=== PATIENT | male | born 1985 | race African-American/Black ===

== ENCOUNTER 2018-09-26 18:24 | Emergency (ER) | payer OTHER ==
[2018-09-26] MEDS ORDERED: LIDOCAINE 2% JELLY 5 ML TUBE TOP ONE (21:47)
[2018-09-26] MEDS ORDERED: LIDOCAINE 2% VISCOUS SOLN 20 ML UDCUP PO ONE (21:54)
--- NOTE | 2018-09-26 21:58 | ER Document Report ---
HPI - HPI Patient complains to provider of: mouth pain Time Seen by Provider: 09/26/18 21:06 Onset: This morning Onset/Duration: Sudden Pain Level: 5 Associated Symptoms: None Exacerbated by: Other - air touching it Relieved by: Denies Similar symptoms previously: No - CONSTITUTIONAL Constitutional: DENIES: Fever, Chills - EENT EENT: DENIES: Sore Throat, Ear Pain - NEURO Neurology: REPORTS: Headache. DENIES: Vision blurred - CARDIOVASCULAR Cardiovascular: DENIES: Chest pain Past Medical History - Social History Smoking Status: Never Smoker Frequency of alcohol use: Occasional Drug Abuse: None Family History: Reviewed & Not Pertinent Patient has suicidal ideation: No Patient has homicidal ideation: No Renal/ Medical History: Denies: Hx Peritoneal Dialysis Past Surgical History: Reports: Hx Orthopedic Surgery - Immunizations Hx Diphtheria, Pertussis, Tetanus Vaccination: Yes Vertical Provider Document - CONSTITUTIONAL Agree With Documented VS: Yes Exam Limitations: No Limitations General Appearance: WD/WN, No Apparent Distress Notes: Patient intoxicated - INFECTION CONTROL TRAVEL OUTSIDE OF THE [place] IN LAST 30 DAYS: No - HEENT HEENT: Atraumatic, Normocephalic. negative: Pharyngeal Erythema Mouth Diagram: 1 - gingival inflammation, no flutuance noted, poor dentition, acute ttp over teeth 8 and 9 - NECK Neck: Lymphadenopathy-Left, Lymphadenopathy-Right - RESPIRATORY Respiratory: Breath Sounds Normal, No Respiratory Distress - CARDIOVASCULAR Cardiovascular: Regular Rate, Regular Rhythm - NEURO Level of Consciousness: Awake, Alert Course - Vital Signs Vital signs: Temp Pulse Resp BP Pulse Ox 98.4 F 73 16 153/101 H 98 09/26/18 18:50 09/26/18 18:50 09/26/18 18:50 09/26/18 18:50 09/26/18 18:50 Discharge - Discharge Clinical Impression: Mouth pain Condition: Stable Disposition: HOME, SELF-CARE Additional Instructions: You were seen in the emergency department this evening for gum pain. There is no evidence that you have an abscess but it appears that your gums are inflamed. I gave you some numbing medicine for your mouth. Please use it sparingly and follow the directions on the label. I also gave you antibiotics that you should take for 7 days. He will start to feel improvement after 1-2 days. It is important to take the antibiotics all the way through until they are gone. Please go see the [facility]. Their address is as follows: [address], [address] If you develop a fever, your face swells up and you have difficulty breathing please immediately return to the emergency department. Prescriptions: Lidocaine HCl [Xylocaine 2% Viscous Soln 20 ml Udcup] 20 ml MM ASDIR PRN #1 udc PRN Reason: Penicillin V Potassium [Penicillin Vk 500 mg Tablet] 500 mg PO BID #14 tablet
[2018-09-26 22:13] VITALS: BP 151/89
== END 2018-09-26 22:13 | disposition home or self-care (01) ==
LOC: ER 18:24
DX: K08.89 Other specified disorders of teeth and supporting structures (principal)
CPT/HCPCS: 99282; J3490

== ENCOUNTER 2019-02-19 14:36 | Emergency (ER) | payer SELFPAY ==
[2019-02-19] MEDS ORDERED: ASPIRIN 325 MG TABLET PO ONE (14:53)
[2019-02-19] MEDS ORDERED: ASPIRIN 81 MG TABLET, CHEWABLE PO ONE (14:53)
--- NOTE | 2019-02-19 14:55 | ER Document Report ---
ED Medical Screen (RME) - General Chief Complaint: Chest Pain Stated Complaint: CHEST PAIN Time Seen by Provider: 02/19/19 14:47 Mode of Arrival: Ambulatory Information source: Patient Notes: 33-year-old male presented to ED for complaint of substernal chest pain. He states it does not radiate anywhere. He states it is just below his sternum when he breathes in real deep bad pain when he breathes out he does not have pain. He states he does smoke about 5 cigarettes a day drinks 1 to 240 ounce beers a day uses cocaine but has not had any in a while but does smoke pot. He has a history of ADHD and bipolar. States he does not have any cardiac history. Patient is alert and oriented respirations regular and unlabored speaking in full sentences walks with a even steady gait. I have greeted and performed a rapid initial assessment of this patient. A comprehensive ED assessment and evaluation of the patient, analysis of test results and completion of medical decision making process will be conducted by an additional ED providers. TRAVEL OUTSIDE OF THE [place] IN LAST 30 DAYS: No - Related Data Allergies/Adverse Reactions: No Known Allergies Allergy (Verified 09/06/13 20:22) Past Medical History - Social History Drug Abuse: Cocaine, Marijuana Renal/ Medical History: Denies: Hx Peritoneal Dialysis Psychiatric Medical History: Reports: Hx Attention Deficit Hyperactivity Disorder, Hx Bipolar Disorder Past Surgical History: Reports: Hx Orthopedic Surgery - Immunizations Hx Diphtheria, Pertussis, Tetanus Vaccination: Yes Physical Exam - Vital signs Vitals: Temp Pulse Resp BP Pulse Ox 98 F 76 18 143/83 H 99 02/19/19 14:44 02/19/19 14:44 02/19/19 14:44 02/19/19 14:44 02/19/19 14:44 Course - Vital Signs Vital signs: Temp Pulse Resp BP Pulse Ox 98 F 76 18 143/83 H 99 02/19/19 14:44 02/19/19 14:44 02/19/19 14:44 02/19/19 14:44 02/19/19 14:44
[2019-02-19 15:34] LABS: ABSOLUTE EOSINOPHILS # (AUTO) 0.1 10^3/uL (0.0-0.6); ABSOLUTE LYMPHOCYTES (AUTO) 2.5 10^3/uL (0.5-4.7); ABSOLUTE MONOCYTES (AUTO) 0.4 10^3/uL (0.1-1.4); BASOPHILS % (AUTO) 0.4 % (0-2); EOSINOPHILS % (AUTO) 1.8 % (0-6); HEMATOCRIT 45.2 % (37.9-51.0); LYMPHOCYTES % (AUTO) 41.9 % (13-45); MEAN CORPUSCULAR HEMOGLOBIN 27.7 pg (27.0-33.4); MEAN CORPUSCULAR HGB CONC 33.3 g/dL (32.0-36.0); MEAN CORPUSCULAR VOLUME 83 fl (80-97); MONOCYTES % (AUTO) 6.9 % (3-13); PLATELET COUNT 277 10^3/uL (150-450); RED BLOOD COUNT 5.43 10^6/uL (4.35-5.55); RED CELL DISTRIBUTION WIDTH 15.3 % (11.5-14.0); TOTAL CELLS COUNTED % (AUTO) 100 %
--- NOTE | 2019-02-19 15:40 | RADIOLOGY REPORT (SQ) ---
EXAM DESCRIPTION: CHEST 2 VIEWS COMPLETED DATE/TIME: 02/19/2019 3:34 pm REASON FOR STUDY: substernal chest pain COMPARISON: None. EXAM PARAMETERS: NUMBER OF VIEWS: two views TECHNIQUE: Digital Frontal and Lateral radiographic views of the chest acquired. RADIATION DOSE: NA LIMITATIONS: none FINDINGS: LUNGS AND PLEURA: No opacities, masses or pneumothorax. No pleural effusion. MEDIASTINUM AND HILAR STRUCTURES: No masses or contour abnormalities. HEART AND VASCULAR STRUCTURES: Heart normal size. No evidence for failure. BONES: No acute findings. HARDWARE: None in the chest. OTHER: No other significant finding. IMPRESSION: NO ACUTE RADIOGRAPHIC FINDING IN THE CHEST. TECHNICAL DOCUMENTATION: JOB ID: [id number]- All Rights Reserved Reading location - IP/workstation name: [email or web address]
[2019-02-19 15:51] LABS: ALANINE AMINOTRANSFERASE 54 U/L (21-72); ALBUMIN 4.4 g/dL (3.5-5.0); ALKALINE PHOSPHATASE 71 U/L (38-126); ANION GAP 12 (5-19); APPEARANCE,URINE CLEAR; ASPARTATE AMINO TRANSFERASE 31 U/L (17-59); BILIRUBIN,DIRECT 0.3 mg/dL (0.0-0.4); BILIRUBIN,TOTAL 0.7 mg/dL (0.2-1.3); BILIRUBIN,URINE NEGATIVE (NEGATIVE); BLOOD UREA NITROGEN 22 mg/dL (7-20); CALCIUM 9.9 mg/dL (8.4-10.2); CARBON DIOXIDE 29 mmol/L (22-30); CHLORIDE 102 mmol/L (98-107); COLOR,URINE YELLOW; GLUCOSE 103 mg/dL (75-110); GLUCOSE, URINE NEGATIVE (NEGATIVE); KETONES,URINE NEGATIVE (NEGATIVE); LEUKOCYTE ESTERASE,URINE NEGATIVE (NEGATIVE); LIPASE 39.5 U/L (23-300); NITRITE,URINE NEGATIVE (NEGATIVE); POTASSIUM 4.6 mmol/L (3.6-5.0); PROTEIN,URINE NEGATIVE (NEGATIVE); SODIUM 142.5 mmol/L (137-145); TOTAL PROTEIN 7.7 g/dL (6.3-8.2); URINE SPECIFIC GRAVITY 1.021; UROBILINOGEN,URINE NEGATIVE mg/dL (<2.0)
[2019-02-19 16:04] LABS: URINE AMPHETAMINES SCREEN NEGATIVE; URINE BARBITURATES SCREEN NEGATIVE; URINE BENZODIAZEPINES SCREEN NEGATIVE; URINE COCAINE SCREEN NEGATIVE; URINE MARIJUANA (THC) SCREEN UNCONFIRMED POSITIVE; URINE METHADONE SCREEN NEGATIVE; URINE PHENCYCLIDINE SCREEN NEGATIVE
[2019-02-19 16:05] LABS: CREATINE KINASE MB < 0.22 ng/mL (<4.55); TROPONIN I < 0.012 ng/mL
--- NOTE | 2019-02-19 16:10 | EKG REPORT ---
SEVERITY:- NORMAL ECG - SINUS RHYTHM : Confirmed by: Cj Guy MD 19-Feb-2019 16:09:36
[2019-02-19] MEDS ORDERED: KETOROLAC TROMETHAMINE INJ/PF 30 MG/1 ML SDV IV ONE (18:36)
--- NOTE | 2019-02-19 19:17 | ER Document Report ---
ED General - General Chief Complaint: Chest Pain Stated Complaint: CHEST PAIN Time Seen by Provider: 02/19/19 14:47 Mode of Arrival: Ambulatory TRAVEL OUTSIDE OF THE [place] IN LAST 30 DAYS: No - HPI Notes: Patient is a 33-year-old male who presents to the emergency department for e valuation of chest pain. He points to an area just to the left of his sternum. He states it is at one fingertip, then worsens with deep breaths up his chest. Nothing seems to make it better. He denies any associated shortness of breath, nausea, diaphoresis, near syncope. He states he awoke with this pain this morning at approximately 5:30 in the morning. - Related Data Allergies/Adverse Reactions: No Known Allergies Allergy (Verified 09/06/13 20:22) Past Medical History - General Information source: Patient - Social History Smoking Status: Current Every Day Smoker Drug Abuse: Cocaine, Marijuana Family History: CVA, DM Patient has suicidal ideation: No Patient has homicidal ideation: No Renal/ Medical History: Denies: Hx Peritoneal Dialysis Psychiatric Medical History: Reports: Hx Attention Deficit Hyperactivity Disorder, Hx Bipolar Disorder Past Surgical History: Reports: Hx Orthopedic Surgery - Immunizations Hx Diphtheria, Pertussis, Tetanus Vaccination: Yes Review of Systems - Review of Systems Constitutional: No symptoms reported EENT: No symptoms reported Cardiovascular: See HPI Respiratory: No symptoms reported Gastrointestinal: No symptoms reported Genitourinary: No symptoms reported Musculoskeletal: No symptoms reported Skin: No symptoms reported Neurological/Psychological: No symptoms reported Physical Exam - Vital signs Vitals: Temp Pulse Resp BP Pulse Ox 98 F 76 18 143/83 H 99 02/19/19 14:44 02/19/19 14:44 02/19/19 14:44 02/19/19 14:44 02/19/19 14:44 - Notes Notes: Vital signs reviewed, please refer to chart. Patient is normocephalic, atraumatic. Pupils equal round, reactive to light. Neck is supple without meningismus. Heart is regular rate and rhythm. Lungs are clear to auscultation bilaterally. Chest wall is tender to palpation in the area of this patient's pain. Abdomen is soft, nontender, normoactive bowel sounds throughout. Extremities without cyanosis, clubbing, edema. No posterior calf tenderness. Peripheral pulses are equal. Skin is warm and dry. Patient is awake, alert, neurological exam is nonfocal. Course - Re-evaluation Re-evalutation: 02/19/19 19:21 Patient presents to the emergency department for evaluation of chest pain. He is overweight. He does have elevated blood pressure here. He does not have a family doctor. He was told he needs to establish care with a family doctor. H is pain is certainly not typical of angina. It is reproducible. It is worsened with movements. I expanded the patient that he does however, have significant risk factors that should be addressed. He voiced understanding to this. He is to try and quit smoking. He is to keep an eye on his blood pressure, establish care with a primary care physician to make sure he is adjusting his risk factors appropriately. He understands that, despite negative work-up here, I cannot tell him he does not have the presence of coronary artery disease. He is to follow-up with primary care, return to the emergency department with worsening or new concerning symptoms of any sort. - Vital Signs Vital signs: Temp Pulse Resp BP Pulse Ox 98.5 F 73 18 131/79 H 98 02/19/19 19:22 02/19/19 19:22 02/19/19 19:22 02/19/19 19:22 02/19/19 19:22 - Laboratory Result Diagrams: 02/19/19 14:58 02/19/19 14:58 Laboratory results interpreted by me: 02/19/19 02/19/19 02/19/19 14:58 14:58 14:58 RDW 15.3 H BUN 22 H Creatinine 1.33 H Urine Blood SMALL H - Diagnostic Test Radiology reviewed: Reports reviewed - No acute cardiopulmonary disease - EKG Interpretation by Me Additional EKG results interpreted by me: 02/19/19 19:24 Sinus mechanism with a rate of 67 bpm. Normal axis and intervals, no acute ST changes concerning for ischemia or infarction. Discharge - Discharge Clinical Impression: Chest wall pain Condition: Stable Disposition: HOME, SELF-CARE Instructions: Chest Wall Pain ([facility]), Chest Pain of Unclear Cause ([facility]) Additional Instructions: Try to quit smoking. Follow-up with primary care, have an evaluation of your blood pressure, cholesterol, and other reversible risk factors. Return to the emergency department with worsening or new concerning symptoms of any sort.
[2019-02-19 19:22] VITALS: BP 131/79
== END 2019-02-19 19:30 | disposition home or self-care (01) ==
LOC: ER 14:36
DX: R07.89 Other chest pain (principal); F17.200 Nicotine dependence, unspecified, uncomplicated
CPT/HCPCS: 93005; 99284; 96374; 36415; 82553; 83690; 85025; 80053; 81001; 84484; 80307; 71046; 93010; J1885

== ENCOUNTER 2019-04-14 10:23 | Emergency (ER) | payer SELFPAY ==
--- NOTE | 2019-04-14 11:16 | ER Document Report ---
HPI - HPI Time Seen by Provider: 04/14/19 11:15 Pain Level: 3 Notes: Patient is a 33-year-old male with a history of chronic knee pain who presents complaining of left ankle pain without any acute injury over the past couple days. Patient states that he uses a weed Shakira and is constantly walking and going up hills. Patient states that his knee will hurt on occasion, but is here because of his ankle. Patient states that he has soreness in his ankle and at times it feels like it wants to give way on him. Patient states that he is here because he needs a work note for today. Denies drug allergies. No other concerns or complaints. He has not noticed any swelling or bruising. Denies any headache, fever, neck pain, URI, sore throat, chest pain, palpitations, syncope, cough, shortness of breath, wheeze, dyspnea, abdominal pain, nausea/vomiting/diarrhea, urinary retention, dysuria, hematuria, loss of control of bowel or bladder, numbness/tingling, muscle paralysis/weakness, or rash. - ROS Systems Reviewed and Negative: Yes All other systems reviewed and negative Past Medical History - Social History Smoking Status: Unknown if Ever Smoked Family History: CVA, DM Renal/ Medical History: Denies: Hx Peritoneal Dialysis Psychiatric Medical History: Reports: Hx Attention Deficit Hyperactivity Disorder, Hx Bipolar Disorder Past Surgical History: Reports: Hx Orthopedic Surgery - Immunizations Hx Diphtheria, Pertussis, Tetanus Vaccination: Yes Vertical Provider Document - CONSTITUTIONAL Agree With Documented VS: Yes Notes: PHYSICAL EXAMINATION: GENERAL: Well-appearing, well-nourished and in no acute distress. LUNGS: Breath sounds clear to auscultation bilaterally and equal. No wheezes rales or rhonchi. HEART: Regular rate and rhythm without murmurs, rubs, gallops. Musculoskeletal: Lt foot/ankle: No swelling. No ecchymosis or deformity. FROM to passive/active. Strength 5+/5. N/V intact distal. No bony tenderness of the ankle/foot. Achilles intact. Lis Franc maneuver neg. Anterior drawer neg. Extremities: No cyanosis, clubbing, or edema b/l. Peripheral pulses 2+. Capillary refill less than 3 seconds. NEUROLOGICAL: Normal speech, normal gait. Normal sensory, motor exams PSYCH: Normal mood, normal affect. SKIN: Warm, Dry, normal turgor, no rashes or lesions noted. - INFECTION CONTROL TRAVEL OUTSIDE OF THE [place] IN LAST 30 DAYS: No Course - Re-evaluation Re-evalutation: 04/14/19 11:18 Patient is an afebrile, well-hydrated, 33-year-old female who presents to the ED with left ankle pain which I suspect to be a sprain versus strain. Vitals are acceptable without any significant tachycardia, tachypnea, or hypoxia. PE is otherwise unremarkable for any neurovascular compromise, obvious tendon/ligament rupture, obvious fracture/dislocation, septic joint. X-ray was unremarkable for any acute pathology. Ankle stirrup provided today. Patient is nontoxic- appearing. Patient is able to ambulate and weight-bear. No other labs or imaging warranted at this time based on H&P. Conservative measures otherwise for symptoms. Recheck with your PCM in 3-5 days. Consider consult orthopedics. Return to the ED with any worsening/concerning symptoms otherwise as reviewed in discharge. Patient is in agreement. - Vital Signs Vital signs: Temp Pulse Resp BP Pulse Ox 98.8 F 73 18 141/85 H 97 04/14/19 10:48 04/14/19 10:48 04/14/19 10:48 04/14/19 10:48 04/14/19 10:48 Discharge - Discharge Clinical Impression: Left ankle pain Qualifiers: Chronicity: acute Qualified Code(s): M25.572 - Pain in left ankle and joints of left foot Condition: Stable Disposition: HOME, SELF-CARE Additional Instructions: Rest, Ice, Compression, Elevation Tylenol/ibuprofen as needed Light stretches daily Strength exercises as able Moist heat and massage may help F/u with your PCP in 3-5 days for a recheck Consider consult(s) with Orthopedics/physical therapy for ongoing/worsening symptoms Return to the ED with any worsening symptoms and/or development of fever, headache, chest pain, palpitations, syncope, shortness of breath, trouble breathing, abdominal pain, n/v/d, muscle weakness/paralysis, numbness/tingling, swelling, redness, or other worsening symptoms that are concerning to you. Forms: Elevated Blood Pressure Referrals: [facility] ([facility] [Provider Group] - Follow up as needed
[2019-04-14 11:34] VITALS: BP 136/85
== END 2019-04-14 12:02 | disposition home or self-care (01) ==
LOC: ER 10:23
DX: M25.572 Pain in left ankle and joints of left foot (principal)
CPT/HCPCS: 99283; L1902

== ENCOUNTER 2020-06-26 14:31 | Emergency (ER) | payer SELFPAY ==
[2020-06-26 14:39] VITALS: BP 125/82
--- NOTE | 2020-06-26 14:49 | ER Document Report ---
HPI - HPI Patient complains to provider of: Left knee pain Time Seen by Provider: 06/26/20 14:36 Onset: Yesterday Onset/Duration: Sudden Quality of pain: Achy Pain Level: 3 Context: Patient presents complaining of left knee pain. Patient states he was walking and his left knee gave out. Patient states that he did not fall. Patient also reports that his gingiva have swollen today and pus was coming out of his gums this morning. Patient denies any fever. Associated Symptoms: Other - Left knee pain, dental pain. denies: Fever Exacerbated by: Standing, Movement, Walking Relieved by: Denies Similar symptoms previously: Yes Recently seen / treated by doctor: No - ROS ROS below otherwise negative: Yes Systems Reviewed and Negative: Yes All other systems reviewed and negative - CONSTITUTIONAL Constitutional: DENIES: Fever, Chills - EENT Notes: Gingival tenderness with purulent drainage from gums - RESPIRATORY Respiratory: DENIES: Coughing - GASTROINTESTINAL Gastrointestinal: DENIES: Nausea, Patient vomiting - MUSCULOSKELETAL Musculoskeletal: REPORTS: Extremity pain. DENIES: Swelling - DERM Skin Color: Normal Skin Problems: None Past Medical History - General Information source: Patient - Social History Smoking Status: Current Every Day Smoker Chew tobacco use (# tins/day): No Frequency of alcohol use: Occasional Drug Abuse: Marijuana Occupation: [employer] Lives with: Family Family History: CVA, DM Patient has homicidal ideation: No Renal/ Medical History: Denies: Hx Peritoneal Dialysis Psychiatric Medical History: Reports: Hx Attention Deficit Hyperactivity Dis order, Hx Bipolar Disorder Past Surgical History: Reports: Hx Orthopedic Surgery - Immunizations Hx Diphtheria, Pertussis, Tetanus Vaccination: Yes Vertical Provider Document - CONSTITUTIONAL Agree With Documented VS: Yes Exam Limitations: No Limitations General Appearance: WD/WN, No Apparent Distress - INFECTION CONTROL TRAVEL OUTSIDE OF THE [place] IN LAST 30 DAYS: No - HEENT HEENT: Atraumatic, Normocephalic Mouth Diagram: 1 - Gingival tenderness, inflammation, swelling - NECK Neck: Normal Inspection, Supple. negative: Lymphadenopathy-Left, Lymphadenopathy-Right - RESPIRATORY Respiratory: Breath Sounds Normal, No Respiratory Distress - CARDIOVASCULAR Cardiovascular: Regular Rate, Regular Rhythm, No Murmur - MUSCULOSKELETAL/EXTREMETIES Musculoskeletal/Extremeties: MAEW, Tender - Left knee joint tenderness to anterior popliteal aspect of the joint, no effusion, no laxity with varus or valgus maneuvers. Patellar tendon intact, No Edema. negative: Eccymosis - NEURO Level of Consciousness: Awake, Alert, Appropriate Motor/Sensory: No Motor Deficit - DERM Integumentary: Warm, Dry, No Rash Course - Re-evaluation Re-evalutation: 06/26/20 14:56 Patient with left knee sprain, no concern for any fracture, dislocation or septic arthritis. Will immobilize and refer to orthopedics for further management. Patient also encouraged to follow-up with dental care provider. No drainable abscess noted to the gingiva - Vital Signs Vital signs: Temp Pulse Resp BP Pulse Ox 98.0 F 66 18 125/82 99 06/26/20 14:38 06/26/20 14:38 06/26/20 14:38 06/26/20 14:38 06/26/20 14:38 Procedures - Immobilization Left Knee Pre-Proc Neuro Vasc Exam: Normal Immobilizer type: Knee immobilizer Performed by: PCT Post-Proc Neuro Vasc Exam: Normal Alignment checked and good: Yes Discharge - Discharge Clinical Impression: Pain, dental Left knee sprain Qualifiers: Encounter type: initial encounter Involved ligament of knee: unspecified ligament Qualified Code(s): S83.92XA - Sprain of unspecified site of left knee, initial encounter Condition: Stable Disposition: HOME, SELF-CARE Instructions: Clindamycin ([facility]), Use of Crutches ([facility]), Ice & Elevation ([facility]), Suspected Internal Knee Injury ([facility]), Knee Immobilizing Splint ([facility]), Oral Narcotic Medication ([facility]), Toothache ([facility]) Additional Instructions: Return immediately for any new or worsening symptoms Followup with your primary care provider, call tomorrow to make a followup appointment Follow-up with orthopedics for further evaluation, call today to make a follow- up appointment Follow-up with a dental care provider Prescriptions: Clindamycin HCl 300 mg PO TID #21 capsule Naproxen [Naprosyn 250 Nmg Tablet] 1 tab PO BID #14 tablet Hydrocodone/Acetaminophen [[place] 5-325 mg Tablet] 1 tab PO Q6 PRN #10 tablet PRN Reason: Forms: Return to Work Referrals: [facility] [Provider Group] - Follow up as needed [facility] [Provider Group] - Follow up as needed [facility] ([facility] [Provider Group] - Follow up tomorrow
== END 2020-06-26 14:59 | disposition home or self-care (01) ==
LOC: ER 14:31
DX: S83.92XA Sprain of unspecified site of left knee, initial encounter (principal); X50.0XXA Overexertion from strenuous movement or load, initial encounter; K08.9 Disorder of teeth and supporting structures, unspecified; F17.200 Nicotine dependence, unspecified, uncomplicated
CPT/HCPCS: 99284

== ENCOUNTER 2020-09-11 13:02 | Emergency (ER) | payer OTHER ==
[2020-09-11 13:15] VITALS: BP 153/97
--- NOTE | 2020-09-11 14:00 | ER Document Report ---
ED Medical Screen (RME) - General Chief Complaint: Facial Swelling Stated Complaint: TOOTH PAIN,FACIAL SWELLING Time Seen by Provider: 09/11/20 13:54 Mode of Arrival: Ambulatory Information source: Patient Notes: 34-year-old male patient presenting to the emergency department with left-sided neck swelling and difficulty swallowing. He states he has some type of gum disease that occasionally causes swelling to his gums however he states this swelling is much different and more significant. He states the swelling started a few days ago and worsened this morning. Palpable swelling noted to left lateral neck. I have greeted and performed a rapid initial assessment of this patient. A comprehensive ED assessment and evaluation of the patient, analysis of test results and completion of the medical decision making process will be conducted by additional ED providers. I have specifically instructed the patient or family members with the patient to immediately return to any nursing staff should anything change in the patient's condition or with their chief complaint. TRAVEL OUTSIDE OF THE [place] IN LAST 30 DAYS: No - Related Data Allergies/Adverse Reactions: No Known Allergies Allergy (Verified 09/11/20 13:50) Past Medical History Renal/ Medical History: Denies: Hx Peritoneal Dialysis Psychiatric Medical History: Reports: Hx Attention Deficit Hyperactivity Disorder, Hx Bipolar Disorder Past Surgical History: Reports: Hx Orthopedic Surgery - Immunizations Hx Diphtheria, Pertussis, Tetanus Vaccination: Yes Physical Exam - Vital signs Vitals: Temp Pulse Resp BP Pulse Ox 98.7 F 93 20 153/97 H 97 09/11/20 13:14 09/11/20 13:14 09/11/20 13:14 09/11/20 13:14 09/11/20 13:14 Course - Vital Signs Vital signs: Temp Pulse Resp BP Pulse Ox 98.7 F 93 20 153/97 H 97 09/11/20 13:14 09/11/20 13:14 09/11/20 13:14 09/11/20 13:14 09/11/20 13:14
--- NOTE | 2020-09-11 15:21 | RADIOLOGY REPORT (SQ) ---
EXAM DESCRIPTION: CT SOFT TISSUE NECK WITH IMAGES COMPLETED DATE/TIME: 09/11/2020 2:31 pm REASON FOR STUDY: L neck swelling COMPARISON: None. TECHNIQUE: Post IV contrasted scanning from skull base through lung apices with review of bone, soft tissue and lung windows. Reconstructed coronal and sagittal MPR images reviewed. All images stored on PACS. All CT scanners at this facility use dose modulation, iterative reconstruction, and/or weight based d osing when appropriate to reduce radiation dose to as low as reasonably achievable (ALARA). [facility]: Dose Right [facility]: CareDose [facility]: Dose Right [facility]: Teradose 4D [facility]: [place] CONTRAST TYPE AND DOSE: contrast/concentration: Isovue 350.00 mmol/ml; Total Contrast Delivered: 74. 0 ml; Total Saline Delivered: 55.0 ml RENAL FUNCTION: None required. The patient is less than 50 years old. RADIATION DOSE: CT Rad equipment meets quality standard of care and radiation dose reduction techniq ues were employed. CTDIvol: 20.6 mGy. DLP: 747 mGy-cm. . LIMITATIONS: None. FINDINGS: SKULL BASE: Intact. MAJOR SALIVARY GLANDS: There are inflammatory changes surrounding the left submandibular gland. The gland is enlarged with heterogeneous attenuation consistent with edema. There is a stone demonstrate d on series 3, image 57. No focal abscess. LYMPHADENOPATHY: Small cervical nodes. MUCOSAL MASSES OR ASYMMETRY: No mucosal masses or asymmetry. LARYNX/CORDS: No abnormal findings. VASCULAR STRUCTURES: The major vessels are patent. LUNG APICES: Clear. BONES: Intact. THYROID: Normal size. No masses. PARANASAL SINUSES: Clear. OTHER: Subcutaneous edema and thickening of the platysmas muscle. IMPRESSION: Findings are consistent with left submandibular sialadenitis. No focal abscess. There is a small stone demonstrated on series 3, image 57 this may be causing ductal obstruction. TECHNICAL DOCUMENTATION: JOB ID: [id number] Quality ID # [id number]: Final reports with documentation of one or more dose reduction techniques (e.g., Au tomated exposure control, adjustment of the mA and/or kV according to patient size, use of iterative reconstruction technique) 2010 [employer]- All Rights Reserved Reading location - IP/workstation name: [email or web address]
--- NOTE | 2020-09-11 16:05 | ER Document Report ---
ED General - General Chief Complaint: Neck Swelling Stated Complaint: TOOTH PAIN,FACIAL SWELLING Time Seen by Provider: 09/11/20 13:54 Mode of Arrival: Ambulatory Information source: Patient Notes: 24-year-old -[place] male coming in today chief complaint left side of mouth and neck swelling. Has developed periodontal disease and is worried that he is having a flareup of that. No fevers or chills. No difficulty swallowing or breathing. TRAVEL OUTSIDE OF THE [place] IN LAST 30 DAYS: No - Related Data Allergies/Adverse Reactions: No Known Allergies Allergy (Verified 09/11/20 13:50) Past Medical History - General Information source: Patient - Social History Smoking Status: Current Every Day Smoker Chew tobacco use (# tins/day): No Frequency of alcohol use: Social Drug Abuse: Marijuana Family History: CVA, DM Renal/ Medical History: Denies: Hx Peritoneal Dialysis Psychiatric Medical History: Reports: Hx Attention Deficit Hyperactivity Disorder, Hx Bipolar Disorder Past Surgical History: Reports: Hx Orthopedic Surgery - Immunizations Hx Diphtheria, Pertussis, Tetanus Vaccination: Yes Review of Systems - Review of Systems Notes: Constitutional: No fevers. No chills. EENT: No eye redness. No eye pain. No ear pain. No sore throat. Positive for throat pain and throat swelling Cardiovascular: No chest pain. No palpitations. Respiratory: No cough. No shortness of breath. No respiratory distress. Gastrointestinal: No abdominal pain. No nausea, vomiting, or diarrhea. Genitourinary: Atraumatic. No lesions. No pain. No discharge. Musculoskeletal: Atraumatic. No swelling. No deformities. Skin: No rash or lesions. Lymphatic: No swollen lymph nodes. Neurologic: No headache. No syncope. Psychiatric: No suicidal or homicidal ideation. Physical Exam - Vital signs Vitals: Temp Pulse Resp BP Pulse Ox 98.7 F 93 20 153/97 H 97 09/11/20 13:14 09/11/20 13:14 09/11/20 13:14 09/11/20 13:14 09/11/20 13:14 - Notes Notes: General: Well-developed, well-nourished. In no acute distress. Non-toxic appearing. Cardiac: Well-perfused. Regular rate and rhythm. No murmurs, rubs, or gallops. Pulmonary: No respiratory distress. No cyanosis. Bilateral lung fiels are clear to auscultation. Abdominal: Non-distended. Non-rigid. Bowels sounds are present in all four quadrants. No guarding or rebound. HEENT: Head is atraumatic. Conjunctivae not reddened. No tearing. PERRL. EOMI. Orbits atraumatic. No periorbital swelling or erythema. Oropharynx is without erythema, swelling, or exudates. No obvious oropharyngeal swelling. No trismus. No drooling. No submandibular or sublingual swelling. No dysphonia dyspnea or dysphagia Neck: Supple. No adenopathy. No meningismus. Dermatologic: Warm with good turgor. No rash. Atraumatic. Chest: Atraumatic. No chest wall tenderness to palpation. Musculoskeletal: Moves all extremities well. No range of motion deficits. no muscular or joint tenderness. No paraspinal muscle tenderness. no midline spinal tenderness or step-off. Genitourinary: Examination deferred Neurologic: No gross neurologic deficits. Psychiatric: Normal mood. Course - Re-evaluation Re-evalutation: 09/11/20 16:03 CT scan reveals sialadenitis of the left side submandibular gland. No fevers or chills. Patient is nontoxic-appearing. He is not having any trouble breathing or swallowing. Discussed the need for sour candy. We will start him on some Augmentin. Pain medicine also. Patient is told to return to the ED if he starts having throat swelling that is causing difficulty swallowing or breathing. If his symptoms continue, he will call Dr. Bell's office for follow-up. - Vital Signs Vital signs: Temp Pulse Resp BP Pulse Ox 98.7 F 93 20 153/97 H 97 09/11/20 13:14 09/11/20 13:14 09/11/20 13:14 09/11/20 13:14 09/11/20 13:14 - Diagnostic Test Radiology reviewed: Reports reviewed Discharge - Discharge Clinical Impression: Sialoadenitis of submandibular gland, Elevated blood pressure reading Condition: Good Disposition: HOME, SELF-CARE Additional Instructions: You have a small stone in one of your salivary glands in the left side of your mouth under your tongue. As a result of the stone blocking the gland, you are having increased swelling under your tongue and also in the side of your neck. The treatment for this condition is sour candies to increase the saliva production and thereby pushing the stone out of the salivary duct. Recommended that you get sour candy of some variety and use it on a frequent basis to try to force the stone out of the salivary gland. On occasions, this can predispose you to a bacterial infection. You will be taking antibiotics as a preventative measure. You may take pain medication as needed for severe pain only. If the symptoms are not improved in the next couple of days, please contact Dr. Bell who is a specialist of problems of the ears, nose, and throat. If at any point in time you develop swelling that decreases your ability to swallow or to breathe, be sure to come emergently back to the emergency department. Prescriptions: Amoxicillin/Potassium Clav [Augmentin 500-125 Tablet] 1 each PO TID 7 Days #21 tablet Forms: Elevated Blood Pressure, Return to Work Referrals: BRANDIE BELL DO [ASSOCIATE] - Follow up in 3-5 days
[2020-09-11] MEDS ORDERED: HYDROCODONE/ACETAMINOPHEN 5-325 MG (6 TAB/ER DISP) PO PRN (16:13)
== END 2020-09-11 16:38 | disposition home or self-care (01) ==
LOC: ER 13:02
DX: K11.20 Sialoadenitis, unspecified (principal); R07.0 Pain in throat; F17.200 Nicotine dependence, unspecified, uncomplicated; F12.10 Cannabis abuse, uncomplicated
CPT/HCPCS: 70491; 99285

== ENCOUNTER 2020-10-10 14:50 | Emergency (ER) | payer OTHER ==
[2020-10-10 14:55] VITALS: BP 162/96
--- NOTE | 2020-10-10 15:41 | ER Document Report ---
ED GI/ - General Chief Complaint: Diarrhea Stated Complaint: DIARRHEA Time Seen by Provider: 10/10/20 15:26 Information source: Patient Notes: Patient is a 34-year-old male comes emergency room complaining of sudden onset of diarrhea at 4 AM this morning. Patient states he has had several bouts of loose watery diarrhea. He does states that it has been brownish in color denies any nausea or vomiting. Denies any fevers. Denies any known contact with Covid patients. Denies chest pain or shortness of breath. Patient currently denies any abdominal pain or discomfort. Patient states that he just feels like he has to go to bathroom all the time. Patient also states she really does not want a major work-up he thinks this is just a little bit of a GI bug and that it is getting better over the course of the day. He has been able to eat and drink with no problems. TRAVEL OUTSIDE OF THE [place] IN LAST 30 DAYS: No - HPI Patient complains to provider of: Diarrhea. No: Abdominal pain, Dysuria, Testicular pain, Urinary retention, Vomiting Onset: This morning Timing/Duration: Sudden, Intermittent Quality of pain: No pain Severity at maximum: Moderate Severity in ED: Mild Pain Level: 2 Context: denies: Out of the country travel, Recent trauma Sexual history: Active Associated symptoms: Diarrhea. denies: Coffee ground emesis, Dizzy, Dysuria, Fever, Nausea, Radiates to back, Vomiting Exacerbated by: Denies Relieved by: Other - Time Similar symptoms previously: No Recently seen / treated by doctor: No - Related Data Allergies/Adverse Reactions: No Known Allergies Allergy (Verified 09/11/20 13:50) Past Medical History - General Information source: Patient - Social History Smoking Status: Current Every Day Smoker Chew tobacco use (# tins/day): No Smoking Education Provided: Yes Frequency of alcohol use: None Drug Abuse: None Occupation: [employer] Lives with: Family Family History: Reviewed & Not Pertinent, CVA, DM Renal/ Medical History: Denies: Hx Peritoneal Dialysis Psychiatric Medical History: Reports: Hx Attention Deficit Hyperactivity Disorder, Hx Bipolar Disorder Past Surgical History: Reports: Hx Orthopedic Surgery - Immunizations Hx Diphtheria, Pertussis, Tetanus Vaccination: Yes Review of Systems - Review of Systems Constitutional: No symptoms reported EENT: No symptoms reported Cardiovascular: No symptoms reported Respiratory: No symptoms reported Gastrointestinal: See HPI, Diarrhea. denies: Nausea, Vomiting, Constipation Genitourinary: No symptoms reported Male Genitourinary: No symptoms reported Musculoskeletal: No symptoms reported Skin: No symptoms reported Hematologic/Lymphatic: No symptoms reported Neurological/Psychological: No symptoms reported -: Yes All other systems reviewed and negative Physical Exam - Vital signs Vitals: Temp Pulse Resp BP Pulse Ox 98.2 F 78 18 162/96 H 97 10/10/20 14:54 10/10/20 14:54 10/10/20 14:54 10/10/20 14:54 10/10/20 14:54 Interpretation: Hypertensive - Notes Notes: PHYSICAL EXAMINATION: GENERAL: Well-appearing, well-nourished and in no acute distress. HEAD: Atraumatic, normocephalic. EYES: Pupils equal round and reactive to light, extraocular movements intact, sclera anicteric, conjunctiva are normal. LUNGS: Breath sounds clear to auscultation bilaterally and equal. No wheezes rales or rhonchi. HEART: Regular rate and rhythm without murmurs ABDOMEN: Soft, nontender, nondistended abdomen. No guarding, no rebound. No masses appreciated. Musculoskeletal: Normal range of motion, no pitting or edema. No cyanosis. NEUROLOGICAL: Normal speech, normal gait. Normal sensory, motor exams PSYCH: Normal mood, normal affect. SKIN: Warm, Dry, normal turgor, no rashes or lesions noted. Course - Re-evaluation Re-evalutation: 10/10/20 15:39 Patient looks very well on presentation to the triage room. He denies having any abdominal pain or discomfort. He states that he thinks he is getting better and the reason he is here today as he cannot return to work until he gets approval. 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 He denies any sick contacts he is getting better over the course of time since this morning at 4 AM and the diarrhea has subsided. He has denied any fevers no nausea or vomiting with this and he has had no severe belly pain. He has had occasional cramping when he has to have a bowel movement. The presentation has gradually slowed down and he has not had a bowel movement in several hours. Given this I think it is appropriate to let patient go home today and attempt some clear liquids and to advance the diet. I have informed him that should he spike a fever or have abdominal pain increasing he is to return to ER for reevaluation. - Vital Signs Vital signs: Temp Pulse Resp BP Pulse Ox 98.2 F 78 18 162/96 H 97 10/10/20 14:54 10/10/20 14:54 10/10/20 14:54 10/10/20 14:54 10/10/20 14:54 - Laboratory Results Critical Laboratory Results Reviewed: No Critical Results - No labs needed - Radiology Results Critical Radiology Results Reviewed: No Critical Results - No labs needed Discharge - Discharge Clinical Impression: Diarrhea Qualifiers: Diarrhea type: unspecified type Qualified Code(s): R19.7 - Diarrhea, unspe cified Condition: Stable Disposition: HOME, SELF-CARE Instructions: Diarrhea, Nonspecific ([facility]) Additional Instructions: Home and rest. Diet as tolerated. As we discussed that she had no fever you can try using Imodium [id number] as directed. Remember that it states on the package you can take 2 tablets after each unformed stool up to a total of 10 or 12 tablets a day. Please do not do this as we discussed you should spread the tablets out throughout the day just to slow the diarrhea down. If you take too many tablets to close together you will become severely constipated. As we also do stated should you have increasing pain or discomfort you are to return to ER for reevaluation. Forms: Elevated Blood Pressure, Smoking Cessation Education, Return to Work Referrals: MELO FIORE MD [HONORARY] - Follow up as needed
== END 2020-10-10 15:48 | disposition home or self-care (01) ==
LOC: ER 14:50
DX: R19.7 Diarrhea, unspecified (principal); R25.2 Cramp and spasm; F17.200 Nicotine dependence, unspecified, uncomplicated
CPT/HCPCS: 99282

== ENCOUNTER 2020-10-12 09:57 | Emergency (ER) | payer OTHER ==
[2020-10-12] MEDS ORDERED: MORPHINE SULFATE 10 MG/ML INJ IM ONE (10:48)
[2020-10-12] MEDS ORDERED: KETOROLAC TROMETHAMINE 60 MG/2 ML SDV IM ONE (10:49)
--- NOTE | 2020-10-12 10:51 | ER Document Report ---
HPI - HPI Patient complains to provider of: Low back pain Time Seen by Provider: 10/12/20 10:42 Onset: Yesterday Onset/Duration: Worse Quality of pain: Achy Pain Level: 5 Context: Patient states that a wall unit fell on a woman yesterday and he quickly tried to pull the wall unit off of them. Patient states he felt a pop in his lower back. Patient states pain is worsened today. Patient denies any urinary retention or incontinence. Patient denies any history of IV drug abuse. Patient unable to get comfortable with [id number] medications. Associated Symptoms: Other - Low back pain. denies: Fever, Nausea, Vomiting Exacerbated by: Movement Relieved by: Denies Similar symptoms previously: No Recently seen / treated by doctor: No - ROS ROS below otherwise negative: Yes Systems Reviewed and Negative: Yes All other systems reviewed and negative - CONSTITUTIONAL Constitutional: DENIES: Fever, Chills - NEURO Neurology: DENIES: Weakness - GASTROINTESTINAL Gastrointestinal: DENIES: Nausea - MUSCULOSKELETAL Musculoskeletal: REPORTS: Back Pain. DENIES: Neck Pain - DERM Skin Color: Normal Skin Problems: None Past Medical History - General Information source: Patient - Social History Smoking Status: Current Every Day Smoker Frequency of alcohol use: Occasional Drug Abuse: None Occupation: [employer] Family History: Reviewed & Not Pertinent, CVA, DM Renal/ Medical History: Denies: Hx Peritoneal Dialysis Psychiatric Medical History: Reports: Hx Attention Deficit Hyperactivity Disord er, Hx Bipolar Disorder Past Surgical History: Reports: Hx Orthopedic Surgery - Immunizations Hx Diphtheria, Pertussis, Tetanus Vaccination: Yes Vertical Provider Document - CONSTITUTIONAL Agree With Documented VS: Yes Exam Limitations: No Limitations General Appearance: WD/WN Notes: PHYSICAL EXAMINATION: GENERAL: Well-appearing, well-nourished and in no acute distress. HEAD: Atraumatic, normocephalic. EYES: sclera clear, anicteric, conjunctiva are normal. ENT: nares patent, Moist mucous membranes. NECK: Normal range of motion, supple LUNGS: respirations unlabored HEART: Regular rate and rhythm without murmurs EXTREMITIES: Normal range of motion, no pitting or edema. No cyanosis. pt ambulates without difficulty BACK: Lower lumbar midline tenderness, no deformities or step-offs. No CVA tenderness. NEUROLOGICAL: Cranial nerves grossly intact. Normal speech. No saddle anesthesia. No foot drop PSYCH: Normal mood, normal affect. SKIN: Warm, Dry, normal turgor, no rashes or lesions noted. - INFECTION CONTROL TRAVEL OUTSIDE OF THE [place] IN LAST 30 DAYS: No Course - Re-evaluation Re-evalutation: 10/12/20 12:11 The patient presents with low back pain without signs of spinal cord compression, cauda equina syndrome, infection, aneurysm, or other serious e tiology. The patient is neurologically intact. Given the extremely risk of these diagnoses further testing and evaluation for these possibilities does not appear to be indicated at this time. Patient has been instructed to return if the symptoms worsen or change in any way. - Vital Signs Vital signs: Temp Pulse Resp BP Pulse Ox 97.8 F 63 20 148/102 H 100 10/12/20 10:03 10/12/20 10:03 10/12/20 10:03 10/12/20 10:03 10/12/20 10:03 - Laboratory Results Critical Laboratory Results Reviewed: No Critical Results - Radiology Results Critical Radiology Results Reviewed: No Critical Results Discharge - Discharge Clinical Impression: Low back pain Qualifiers: Chronicity: acute Back pain laterality: midline Sciatica presence: unspecified whether sciatica present Qualified Code(s): M54.5 - Low back pain Condition: Stable Disposition: HOME, SELF-CARE Instructions: Low Back Pain ([facility]), Oral Narcotic Medication ([facility]), Toradol Injection ([facility]) Additional Instructions: Return immediately for any new or worsening symptoms Followup with your primary care provider, call tomorrow to make a followup appointment Avoid heavy lifting Prescriptions: Lidocaine [Lidoderm 5% (700 mg) Transdermal Patch] 1 patch TP DAILY PRN #10 adh..patch PRN Reason: Naproxen [Naprosyn 250 Nmg Tablet] 1 tab PO BID #14 tablet Hydrocodone/Acetaminophen [[place] 5-325 mg Tablet] 1 tab PO Q6 PRN #12 tablet PRN Reason: Forms: Restricted Release, Return to Work Referrals: [facility] [Provider Group] - Follow up as needed [facility] [Provider Group] - Follow up as needed
--- NOTE | 2020-10-12 11:29 | RADIOLOGY REPORT (SQ) ---
EXAM DESCRIPTION: L SPINE WHOLE IMAGES COMPLETED DATE/TIME: 10/12/2020 11:15 am REASON FOR STUDY: back pain, felt pop COMPARISON: None. NUMBER OF VIEWS: Five views including obliques. TECHNIQUE: AP, lateral, oblique, and sacral radiographic images acquired of the lumbar spine. LIMITATIONS: None. FINDINGS: MINERALIZATION: Normal. SEGMENTATION: Normal. No transitional anatomy. ALIGNMENT: Normal. VERTEBRAE: Maintained height. No fracture or worrisome bone lesion. DISCS: Preserved height. No significant osteophytes or end plate irregularity. POSTERIOR ELEMENTS: Pedicles and facets are intact. No pars defect or posterior arch defects. HARDWARE: None in the spine. PARASPINAL SOFT TISSUES: Normal. PELVIS: Intact as visualized. No fractures or worrisome bone lesions. SI joints intact. OTHER: No other significant finding. IMPRESSION: No significant findings. TECHNICAL DOCUMENTATION: JOB ID: [id number] [place]-72 2010 [employer]- All Rights Reserved Reading location - IP/workstation name: [email or web address]
[2020-10-12 12:27] VITALS: BP 132/92
== END 2020-10-12 12:18 | disposition home or self-care (01) ==
LOC: ER 09:57
DX: M54.5 Low back pain (principal); X50.0XXA Overexertion from strenuous movement or load, initial encounter; Y93.89 Activity, other specified; F17.200 Nicotine dependence, unspecified, uncomplicated
CPT/HCPCS: 99284; 96372; 72110; J1885; J2270